=== PATIENT | female | born 1950 | race Caucasian/White ===

== ENCOUNTER → 2016-06-07 | Outpatient (CLI) | payer MEDICARE, MEDICAID ==
--- NOTE | 2016-06-07 10:22 | RAD ---
EXAM DESCRIPTION: Right knee three views CLINICAL HISTORY: 66 y/o ,F, chronic knee pain COMPARISON: None. IMPRESSION: Advanced patellofemoral osteoarthrosis with moderate lateral patellar tracking/ subluxation. Severe medial tibiofemoral compartment joint space narrowing nearly lime-ad-onse with weight-bearing. Lower grade osteoarthrosis of the lateral tibiofemoral compartment. Large osteophytes and possible bodies in the intercondylar region. Several radiopaque densities likely medication overlying the patient in the distal thigh. Bones are osteopenic/ osteoporotic. No acute fracture. No large effusion or hemarthrosis. Several ossified bodies posteriorly on the lateral film. Electronically signed by: Med Alston MD 06/07/2016 10:20
--- NOTE | 2016-06-07 11:12 | RAD ---
EXAM DESCRIPTION: Pelvis one-view CLINICAL HISTORY: 66 y/o ,F, HIP PAIN COMPARISON: None. IMPRESSION: Surgical clips are noted in the pelvis lower quadrants of the abdomen and over the lower lumbar region. Bones are osteopenic. No evidence of acute pelvic fracture or dislocation. No destructive process. Degenerative changes lower lumbar spine. Electronically signed by: Med Alston MD 06/07/2016 11:10
== END ==
LOC: RAD 09:02
PROVIDERS: ATTEND Orthopaedic Surgery
DX: M17.11 Unilateral primary osteoarthritis, right knee (principal); M85.88 Other specified disorders of bone density and structure, other site; M25.551 Pain in right hip

== ENCOUNTER → 2016-08-02 | Outpatient (CLI) | payer MEDICARE, MEDICAID | END | disposition home or self-care (01) | LOC: RESP 09:51 | PROVIDERS: ATTEND Orthopaedic Surgery | DX: Z01.818 Encounter for other preprocedural examination (principal) ==

== ENCOUNTER → 2017-02-16 | Outpatient (CLI) | payer MEDICARE, MEDICAID | END | disposition home or self-care (01) | LOC: GMAL 11:04 | PROVIDERS: ATTEND Family Medicine | DX: R30.0 Dysuria (principal) ==

== ENCOUNTER 2017-03-01 06:00 | Inpatient (IN) | payer MEDICARE, MEDICAID ==
--- NOTE | 2017-02-27 10:03 | HP ---
CHIEF COMPLAINT: Knee pain. HISTORY OF PRESENT ILLNESS: Ms. Batista is a 66-year-old female with a history of severe knee pain. It is getting progressively worse and is affecting her daily activities. She has had conservative measures, but has also had contralateral knee replacement. Because of her ongoing symptoms, she has requested total knee arthroplasty. After discussing the risks, benefits and alternatives to that, the patient has given informed consent. PAST SURGICAL HISTORY: 1. Rotator cuff repair. 2. Cholecystectomy. 3. Appendectomy. 4. Hysterectomy. MEDICATIONS: 1. Tylenol with codeine. 2. Azelastine. 3. Multiple different vitamins. 4. Duloxetine. 5. Fluticasone. 6. Lisinopril. 7. Loratadine. 8. Montelukast. 9. Trazodone. 10. Claritin. ALLERGIES: GABAPENTIN, REGLAN, VICODIN, FLONASE. CODE STATUS: DNR. IMMUNIZATIONS: Up to date. SOCIAL HISTORY: The patient does not drink, smoke or use any illicit drugs. FAMILY HISTORY: None pertinent to today's complaint. REVIEW OF SYSTEMS: Negative except as indicated in the History of Present Illness. PHYSICAL EXAMINATION: VITAL SIGNS: Blood pressure 95/50. Pulse 81. Height 5'9". Weight 238. MENTAL STATUS: The patient is awake, alert, and is able to give a good history and participate in the physical. The patient is oriented to person, place and time. SKIN: Normal tone and turgor. HEENT: Normocephalic, atraumatic. Pupils equal, round and reactive. Mucosal membranes are moist. NECK: Normal range of motion. No thyromegaly, no lymphadenopathy. CHEST: Normal respiratory excursion. CARDIAC: Regular rate and rhythm. No murmurs, rubs or gallops. MUSCULOSKELETAL: The bilateral upper extremities show full active range of motion without pain. She has intact sensation. They are warm and well perfused. Strength is 5/5. The left lower extremity shows full range of motion of the hip. She has a well-healed wound on the anterior aspect of the knee. She has full extension and flexion to about 110 degrees. The right lower extremity shows full painless range of motion in the hip. She is very tender along the medial aspect of the knee. She has lateral joint-line tenderness and pain with patellar mobilization. She has pain throughout her range of motion. IMAGING: X-rays show advanced arthritis. ASSESSMENT: 1. Arthritis. PLAN: The plan at this point is for total knee arthroplasty. We have discussed the risks, benefits, and alternatives to that and the patient has given informed consent. [facility][id number] [facility]
[~2017-03-01 06:00] MED LIST: LACTATED RINGERS 1,000 ML ONE; SODIUM CHL 0.9% 100ML MINI-BAG 100 ML IVPB ONE; SODIUM CHLORIDE 0.9% 100ML 100 ML IVPB ONE; SODIUM CHLORIDE 0.9% 250ML 250 ML ONE; TRANEXAMIC ACID 1,000 MG/10 ML VIAL ONE; VANCOMYCIN HCL INJ 1,000 MG VIAL IVPB ONE; ceFAZolin SODIUM 1 GM VIAL ONE
[2017-03-01] MEDS ORDERED: ceFAZolin SODIUM 1 GM VIAL ONE (06:06)
[2017-03-01] MEDS ORDERED: MORPHINE SULFATE *EPIDURAL* 0.5 MG/ML VIAL ONE (06:32)
[2017-03-01] MEDS ORDERED: MIDAZOLAM INJ 2 MG/2 ML VIAL ONE (06:32)
[2017-03-01] MEDS ORDERED: fentaNYL CITRATE INJ 50 MCG/ML AMP ONE (06:33)
[2017-03-01] MEDS ORDERED: ACETAMINOPHEN IV 1000MG 100 ML ONE (06:33)
[2017-03-01] MEDS ORDERED: BENZOCAINE-MENTH LOZ (CEPACOL) 1 EA LOZ MT PRN (06:50)
[2017-03-01] MEDS ORDERED: MAGNESIUM HYDROXIDE 30 ML UD PO PRN (06:50)
[2017-03-01] MEDS ORDERED: PROMETHAZINE HCL INJ 25 MG in SODIUM CHLORIDE 0.9% 50ML 50 ML IVPB PRN (06:50)
[2017-03-01] MEDS ORDERED: MORPHINE SULFATE INJ 10 MG/ML VIAL IV PRN (06:50)
[2017-03-01] MEDS ORDERED: PROMETHAZINE HCL INJ 12.5 MG in SODIUM CHLORIDE 0.9% 50ML 50 ML IVPB PRN (06:50)
[2017-03-01] MEDS ORDERED: CYCLOBENZAPRINE HCL 10 MG TAB PO PRN (06:50)
[2017-03-01] MEDS ORDERED: ACETAMINOPHEN 325 MG TAB PO PRN (06:50)
[2017-03-01] MEDS ORDERED: ONDANSETRON INJ 4 MG/2 ML VIAL IV PRN (06:50)
[2017-03-01] MEDS ORDERED: NALOXONE HCL INJ 0.4 MG/ML VIAL IV PRN (06:50)
[2017-03-01] MEDS ORDERED: ALUMINUM & MAGNESIUM HYDROXIDE 30 ML UD PO PRN (06:50)
[2017-03-01] MEDS ORDERED: TRANEXAMIC ACID INJ 1,000 MG in SODIUM CHLORIDE 0.9% 100ML 100 ML IVPB ONE (06:50)
[2017-03-01] MEDS ORDERED: HYDROcodone 5MG/APAP 325MG 1 EA TAB PO PRN ×2 (06:50→18:16)
[2017-03-01] MEDS ORDERED: ACETAMINOPHEN 500 MG TAB PO PRN (06:50)
[2017-03-01] MEDS ORDERED: BISACODYL SUPPOSITORY 10 MG PR PRN (06:50)
[2017-03-01] MEDS ORDERED: DEX 5% W/NACL 0.45% 1000ML 1,000 ML IVS PRN (06:50)
[2017-03-01] MEDS ORDERED: MORPHINE SULFATE INJ 10 MG/ML VIAL IM PRN (06:50)
[2017-03-01] MEDS ORDERED: TEMAZEPAM 15 MG CAP PO PRN (06:50)
[2017-03-01] MEDS ORDERED: MORPHINE PCA 1 MG/ML 100ML 1 BAG in PREMIX BAG 1 BAG IVPB SCH (07:00)
[2017-03-01] MEDS ORDERED: ROCURONIUM BROMIDE 10 MG/ML VIAL ONE (07:06)
[2017-03-01] MEDS ORDERED: KETAMINE HCL 100 MG/ML VIAL ONE (07:47)
[2017-03-01] MEDS: ceFAZolin SODIUM 1 GM VIAL ONE ×2 (07:55→09:12)
[2017-03-01] MEDS: BUPIVACAINE 0.25% W/EPI 50 ML VIAL INJ ONE ×2 (07:55→09:24)
[2017-03-01] MEDS: VANCOMYCIN HCL INJ 1,000 MG VIAL IVPB ONE ×2 (07:55→09:12)
[2017-03-01] MEDS ORDERED: ELECTROLYTE-A 1,000 ML IVS ONE (08:40)
[2017-03-01] MEDS ORDERED: raNITIdine HCL INJ 25 MG/ML VIAL IV ONE (10:00)
[2017-03-01] MEDS ORDERED: DEXAMETHASONE INJ 10 MG/ML VIAL IV ONE (10:00)
[2017-03-01] MEDS ORDERED: PROPOFOL 200 MG/20 ML VIAL IV ONE (10:00)
[2017-03-01] MEDS ORDERED: LIDOCAINE 1% 10 ML VIAL INJ ONE (10:00)
[2017-03-01] MEDS ORDERED: MORPHINE PCA 1 MG/ML 100 ML BAG IVPB ONE ×2 (10:01→10:10)
[2017-03-01] MEDS: MAGNESIUM OXIDE 400 MG TAB PO SCH (11:15)
[2017-03-01] MEDS: IV SET AND CAP CHANGE INJ INJ SCH (11:15)
[2017-03-01] MEDS: CELECOXIB 100 MG CAP PO SCH ×2 (11:15→16:42)
[2017-03-01] MEDS ORDERED: diphenhydrAMINE HCL 50 MG/ML VIAL IM PRN (11:56)
[2017-03-01] MEDS: diphenhydrAMINE HCL 50 MG/ML VIAL IV PRN ×3 (12:07→16:41)
[2017-03-01] MEDS ORDERED: ALBUTEROL SULFATE 2.5 MG/3 ML VIAL NEB PRN (14:25)
--- NOTE | 2017-03-01 14:31 | RAD ---
EXAM DESCRIPTION: Knee,Right 2 or More Views CLINICAL HISTORY: TKA COMPARISON: Radiographs right knee 06/07/2016. TECHNIQUE: AP and cross-table lateral images right knee. IMPRESSION: Right total knee arthroplasty. Components in customary position with near-anatomic alignment. Bone abutting the components is unremarkable except for generalized bone density loss. Typical postoperative soft tissue changes. Small soft tissue densities posterior to the femur and superior to the fibular head. Electronically signed by: Florentin Sims MD 03/01/2017 2:29 PM CDT
[2017-03-01] MEDS ORDERED: CEFAZOLIN SODIUM 2 GRAMS IV 50 ML IVPB ONE ×2 (16:35→20:10)
[2017-03-01] MEDS: CEFAZOLIN SODIUM 2 GRAMS IV 2 GM in PREMIX BAG 1 BAG IVPB SCH (16:41)
--- NOTE | 2017-03-01 17:43 | CONS ---
DATE OF CONSULTATION: 03/01/17 SUPERVISING PHYSICIAN: Keegan Lawrence M.D. CHIEF COMPLAINT: Right knee pain. HISTORY OF PRESENT ILLNESS: This is a 66 year-old female patient that has a history of severe right knee pain. It has progressively worsened and has affected her daily activities. She has tried conservative measures and because of her ongoing symptoms she has requested a right total knee arthroplasty per Dr. Juma Saunders, orthopedic surgeon. I am seeing her postoperatively after her right total knee arthroplasty. PAST MEDICAL HISTORY: 1. Hypertension. 2. Gastroesophageal reflux disease. 3. Hyperlipidemia. 4. Left ventricular hypertrophy. 5. Osteoarthritis. 6. History of nephrolithiasis. 7. Obesity. 8. Seasonal allergies. PAST SURGICAL HISTORY: 1. 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 2. Gastric bypass surgery. 3. Tonsillectomy. 4. Dilatation and curettage for a fibroid mass. 5. Panniculectomy. 6. Laminectomy and discectomy of the lower back. 7. Carpal tunnel surgery. 8. Left total knee arthroplasty. OUTPATIENT MEDICATIONS: Per the EMR and awaiting verification. ALLERGIES: AMBIEN, MACROBID, PENICILLIN, SOMA, DEMEROL. FAMILY HISTORY: SOCIAL HISTORY: She is single. She is unmarried. She has no children. She denies tobacco, ETOH or illicit drug use. REVIEW OF SYSTEMS: Negative except as per History of Present Illness. PHYSICAL EXAMINATION: VITAL SIGNS: She is afebrile, heart rate 78, blood pressure 112/81, respiratory rate 18, O2 sat is 98% on 2 liters. GENERAL: This is a 66 year-old female patient lying in her hospital bed. She is in no acute distress. HEENT: Normocephalic and atraumatic. Pupils are equal and reactive. Oropharynx is clear. NECK: Supple without mass. RESPIRATORY: Clear to auscultation bilaterally. CHEST: There is equal rise and fall of the chest with inspiration and expiration. HEART: Regular rate and rhythm. ABDOMEN: Soft, nondistended, non-tender. Bowel sounds are positive. EXTREMITIES: Right knee has an Iceman in place. Bilateral pedal pulses are palpable at +2. There is very minimal edema to the right lower leg. NEUROLOGIC: She is sleepy. She awakens easily. She is oriented to person and place. LABORATORY: There are no labs to report at this time. RADIOLOGY: X-ray from her surgical procedure is per the EMR. ASSESSMENT: 1. Osteoarthritis of the bilateral knees, specifically the right knee status post right total knee arthroplasty performed by Dr. Juma Saunders. Postoperative day #0. 2. Gastroesophageal reflux disease. 3. Hypertension. 4. Seasonal allergies. 5. Hyperlipidemia. 6. History of left ventricular hypertrophy. PLAN: We will continue present supportive care. She will begin her physical therapy tomorrow for strengthening and conditioning per Physical Therapy. Orthopedic issues will be per Dr. Saunders. I have restarted her home medications. I have encouraged good pulmonary hygiene. We will continue to monitor her closely and followup as needed. Dr. Lawrence is the collaborating physician available for consultation. #[id number] [facility]
[2017-03-01] MEDS ORDERED: VANCOMYCIN HCL INJ 1,000 MG VIAL IVPB ONE ×2 (18:11→20:10)
[2017-03-01] MEDS ORDERED: SODIUM CHLORIDE 0.9% 250ML 250 ML ONE ×2 (18:11→20:09)
[2017-03-01] MEDS: VANCOMYCIN HCL INJ 1,000 MG in SODIUM CHLORIDE 0.9% 250ML 250 ML IVPB SCH (18:23)
[2017-03-01] MEDS: HYDROcodone 10MG/APAP 325MG 1 EA TAB PO PRN (18:24)
[2017-03-01] MEDS ORDERED: ENOXAPARIN SODIUM 30 MG/0.3 ML SYG SUBCU ONE (20:10)
[2017-03-01] MEDS: CYCLOBENZAPRINE HCL 10 MG TAB PO PRN (20:21)
[2017-03-01] MEDS: LEVALBUTEROL NEBS 1.25 MG/3 ML VIAL NEB SCH (20:29)
[2017-03-01] MEDS: diphenhydrAMINE HCL 25 MG CAP PO PRN (20:51)
[2017-03-01] MEDS: AZELASTINE BNAS SCH (20:52)
[2017-03-01] MEDS: traZODone HCL 100 MG TAB PO SCH (20:52)
[2017-03-01] MEDS: MONTELUKAST 10 MG TAB PO SCH (20:53)
[2017-03-01] MEDS: DOCUSATE CALCIUM 240 MG CAP PO SCH (20:53)
[2017-03-01] MEDS ORDERED: BUDESONIDE 180 MCG IN SCH (21:00)
[2017-03-01] MEDS: ENOXAPARIN SODIUM 30 MG/0.3 ML SYG SUBCU SCH (22:48)
[2017-03-02] MEDS: HYDROcodone 10MG/APAP 325MG 1 EA TAB PO PRN ×3 (01:54→15:17)
[2017-03-02] MEDS: traMADol HCL 50 MG TAB PO PRN (03:00)
[2017-03-02] MEDS: diphenhydrAMINE HCL 25 MG CAP PO PRN (03:09)
[2017-03-02] MEDS: HYDROmorphone HCL INJ 2 MG/ML VIAL IV PRN ×2 (05:49→11:02)
[2017-03-02] MEDS: hydrOXYzine HCl 25 MG TAB PO PRN ×3 (05:49→21:01)
[2017-03-02] MEDS: VANCOMYCIN HCL INJ 1,000 MG in SODIUM CHLORIDE 0.9% 250ML 250 ML IVPB SCH (05:50)
[2017-03-02] MEDS: CYCLOBENZAPRINE HCL 10 MG TAB PO PRN ×2 (06:25→17:54)
--- NOTE | 2017-03-02 07:54 | PN ---
DATE: 03/01/17 SUBJECTIVE: Ms. Batista is subjectively doing well right now and she is resting. OBJECTIVE: Afebrile. Vital signs stable. Dressing is clean, dry and intact. ASSESSMENT: Status post total knee arthroplasty. PLAN: The plan at this point is for her to begin weight-bearing as tolerated on postoperative day 1. #[id number] [facility]
[2017-03-02] MEDS ORDERED: CEFAZOLIN SODIUM 2 GRAMS IV 50 ML IVPB ONE (07:56)
--- NOTE | 2017-03-02 08:01 | PN ---
DATE: 03/02/17 SUBJECTIVE: Ms. Batista is doing very well. She walked a couple of times yesterday. OBJECTIVE: Afebrile. Vital signs stable. Wound is clean. There are no signs or symptoms of infection. ASSESSMENT: Status post total knee arthroplasty. PLAN: She will continue with her current weight-bearing status. [facility][id number] [facility]
[2017-03-02] MEDS: CELECOXIB 100 MG CAP PO SCH ×2 (08:14→16:48)
[2017-03-02] MEDS: CEFAZOLIN SODIUM 2 GRAMS IV 2 GM in PREMIX BAG 1 BAG IVPB SCH ×2 (08:14)
--- NOTE | 2017-03-02 08:25 | OP ---
DATE OF PROCEDURE: 03/01/17 PREOPERATIVE DIAGNOSIS: 1. Osteoarthritis of the knee. POSTOPERATIVE DIAGNOSIS: 1. Osteoarthritis of the knee. PROCEDURE: 1. Total knee arthroplasty. SURGEON: Juma Saunders MD. [place]: Florentin Cunha CST, SA-C. ANESTHESIA: General. COMPLICATIONS: None. FINDINGS: Severe osteoarthritis of the knee. INDICATION: Ms. Batista has a history of severe knee pain that has been getting progressively worse over the years. She has failed conservative measures and as such as requested operative intervention. After discussing the risks, benefits and alternatives to operative intervention, the patient has given informed consent for total knee arthroplasty. PROCEDURE: The patient was brought to the Operating Room and placed in supine position. General anesthesia was induced and the patient's leg was sterilely prepped and draped. Following prepping and draping, an anterior incision with medial parapatellar approach was used. After exposure, a capsulotomy was performed and the joint was exposed. The knee was hyperflexed and synovectomy and meniscectomy were performed. Using an intramedullary linda, the distal femoral cut was made. Following that, the anterior, posterior, and chamfer cuts were made. The ACL was transected and the tibia was subluxed. Following that, proximal tibial cut was made using an an intramedullary guide. Trial components were placed and the knee was reduced and taken through a range of motion. At that point, it was stable in varus/valgus and anterior/posterior stress testing and patella tracked well. The trial components were removed. The bony surfaces were thoroughly irrigated and dried. The final components were cemented into place. The excess cement was removed and the remaining cement was allowed to cure. The knee was thoroughly irrigated. On further ligamentous testing, she did have some laxity with firm endpoint in valgus stress. Because she did have a firm endpoint, I elected to continue with the procedure irrigate the wound and close the arthrotomy with PDS followed by running interrupted subcuticular stitches. Sterile dressing was placed. The patient was awoken from anesthesia and taken to Recovery. POSTOPERATIVE INSTRUCTIONS: The patient will be weight-bearing as tolerated on postoperative day 1. We will consider using a brace although that may only be the case if she has some feelings of instability secondary to the laxity noted after cementation of the components. We will begin CPM usage on postoperative day zero. #[id number] [facility]
[2017-03-02] MEDS: DULoxetine HCL 30 MG CAP PO SCH (08:51)
[2017-03-02] MEDS: GABAPENTIN 300 MG CAP PO SCH (08:51)
[2017-03-02] MEDS: LISINOPRIL 5 MG TAB PO SCH (08:51)
[2017-03-02] MEDS: MAGNESIUM OXIDE 400 MG TAB PO SCH (08:51)
[2017-03-02] MEDS: AZELASTINE BNAS SCH ×2 (08:52→21:00)
[2017-03-02] MEDS ORDERED: FLUTICASONE PROP 0.05% NASAL 16 GM BTTL BNAS SCH (09:00)
[2017-03-02] MEDS: LEVALBUTEROL NEBS 1.25 MG/3 ML VIAL NEB SCH ×3 (10:00→20:10)
[2017-03-02] MEDS: ENOXAPARIN SODIUM 30 MG/0.3 ML SYG SUBCU SCH ×2 (10:56→22:58)
--- NOTE | 2017-03-02 15:07 | PN ---
SUPERVISING PHYSICIAN: Keegan Lawrence MD DATE: 03/02/17 SUBJECTIVE: The patient is sitting in the bedside chair eating lunch. She says her pain is fairly well controlled. She has had some episodes of pruritus. She was given some Atarax as well as she has had some confusional episodes from postoperative pain management. She does remain afebrile. OBJECTIVE: VITAL SIGNS: T-max 98.9. Pulse 87. Blood pressure 128/63. Respirations 16. Saturation 94% on room air. I&Os show negative balance of 440 , with 2610 in, 3050 out. Weight 112.4 kg. CHEST: Lungs clear to auscultation, diminished slightly towards the bases. ABDOMEN: Soft, nontender. Positive bowel sounds. EXTREMITIES: Bulky dressing remains in place overlying the right knee. Pulses are strong with brisk capillary brisk. NEUROLOGIC: Alert and oriented to herself, somewhat confused to place at times, but easily oriented. She moves all extremities ad jessica. LABORATORY: Postoperative hemoglobin 9.5, hematocrit 27.8. ASSESSMENT: 1. Osteoarthritis of the bilateral knees, specifically affecting the right knee with the patient status post right total knee arthroplasty, postoperative day # 1, performed by Dr. Juma Saunders. 2. Gastroesophageal reflux disease. 3. Hypertension. 4. Seasonal allergies. 5. Hyperlipidemia. 6. History of left ventricular hypertrophy. PLAN: We will continue to monitor the patient closely, adjust her pain medicines and assist with administration of medicine in regard to the pruritus. We will anticipate discharge at the discretion of Dr. Saunders in orthopedic services along with physical therapy. Until then, we will continue to monitor the patient closely and treat appropriately. #[id number] [facility]
[2017-03-02] MEDS ORDERED: LORATADINE 10 MG TAB PO ONE (19:59)
[2017-03-02] MEDS: SODIUM CHLORIDE 0.9% (FLUSH) 10 ML SYG IV PRN (20:20)
[2017-03-02] MEDS: LORATADINE 10 MG TAB PO SCH (21:00)
[2017-03-02] MEDS: MONTELUKAST 10 MG TAB PO SCH (21:00)
[2017-03-02] MEDS: traZODone HCL 100 MG TAB PO SCH (21:00)
[2017-03-02] MEDS: DOCUSATE CALCIUM 240 MG CAP PO SCH (21:00)
[2017-03-03] MEDS: HYDROmorphone HCL INJ 2 MG/ML VIAL IV PRN (01:00)
[2017-03-03] MEDS: SODIUM CHLORIDE 0.9% (FLUSH) 10 ML SYG IV PRN ×2 (01:00→02:39)
[2017-03-03] MEDS: HYDROcodone 10MG/APAP 325MG 1 EA TAB PO PRN ×3 (04:45→18:21)
[2017-03-03] MEDS: LEVALBUTEROL NEBS 1.25 MG/3 ML VIAL NEB SCH ×3 (08:05→20:41)
[2017-03-03] MEDS: SODIUM CHLORIDE 0.9% (FLUSH) 10 ML SYG IV SCH ×3 (08:12→20:34)
[2017-03-03] MEDS: CYCLOBENZAPRINE HCL 10 MG TAB PO PRN ×2 (08:12→16:27)
[2017-03-03] MEDS: GABAPENTIN 300 MG CAP PO SCH (08:12)
[2017-03-03] MEDS: CELECOXIB 100 MG CAP PO SCH ×2 (08:12→16:27)
[2017-03-03] MEDS: traMADol HCL 50 MG TAB PO PRN (08:12)
[2017-03-03] MEDS: DULoxetine HCL 30 MG CAP PO SCH (08:12)
[2017-03-03] MEDS: LISINOPRIL 5 MG TAB PO SCH (08:12)
[2017-03-03] MEDS: MAGNESIUM OXIDE 400 MG TAB PO SCH (08:12)
[2017-03-03] MEDS: AZELASTINE BNAS SCH ×2 (08:12→20:30)
[2017-03-03] MEDS ORDERED: ALPRAZolam 0.25 MG TAB ONE (09:12)
[2017-03-03] MEDS: ALPRAZolam 0.25 MG TAB PO PRN ×2 (09:18→18:21)
[2017-03-03] MEDS: ENOXAPARIN SODIUM 30 MG/0.3 ML SYG SUBCU SCH ×2 (11:16→23:04)
--- NOTE | 2017-03-03 13:44 | PN ---
SUPERVISING PHYSICIAN: Keegan Lawrence MD DATE: 03/03/17 SUBJECTIVE: The patient is much more alert today although she is still having some itching issues. She has fairly good control of her pain and has no signs of infection. She remains afebrile. She has been working with physical therapy. OBJECTIVE: VITAL SIGNS: T-max 98.8. Pulse 83. Blood pressure 160/82. Respirations 18. Saturation 98% on room air. I&Os show negative balance of 385 with 2015 in, 2400 out. Weight 112.4 kg. CHEST: Lungs clear to auscultation bilaterally. HEART: Regular rate and rhythm. ABDOMEN: Soft, nontender. Positive bowel sounds. EXTREMITIES: Bulky dressing remains in place over the right knee. Distal pulses are strong with brisk capillary refill. NEUROLOGIC: Alert and oriented times three. ASSESSMENT: 1. Osteoarthritis of the bilateral knees, specifically affecting the right knee with the patient status post right total knee arthroplasty, postoperative day # 2, performed by Dr. Juma Saunders. 2. Gastroesophageal reflux disease. 3. Hypertension. 4. Seasonal allergies. 5. Hyperlipidemia. 6. History of ventricular hypertrophy. PLAN: We will continue to follow the patient as she progresses through physical therapy efforts. She has been somewhat anxious. We will try some Xanax p.r.n. 0.25 mg. We will monitor close and ensure the patient is able to continue with her physical therapy with no sedation. We will continue to follow the patient and encourage deep breathing exercises and anticipate discharge once the patient is clinically improved and met her goals with physical therapy. Until then, we will continue to monitor the patient closely and treat appropriately. #[id number] [facility]
--- NOTE | 2017-03-03 15:23 | PCM.CORE ---
Physician DVT/VTE - Nurse DVT Assessment & Total Each Risk Factor Represents 5 Points: Elective Arthtroplasty Each Risk Factor Represents 2 Points: Major Surgery >45 minutes, Confined to bed >72 hours Each Risk Factor is 1 Point: Obesity (BMI >25) DVT Assessment Score: 10 - 5 or more Very High Risk Treatments: Early Ambulation *, Sequential Compression Device Pharmacological: Enoxaparin 30mg SQ BID
[2017-03-03] MEDS ORDERED: CEFEPIME 2 GM VIAL IVPB ONE (18:07)
[2017-03-03] MEDS ORDERED: SODIUM CHLORIDE 0.9% 1000ML 1,000 ML ONE (18:07)
[2017-03-03] MEDS ORDERED: SODIUM CHLORIDE 0.9% 100ML 100 ML IVPB ONE (18:08)
[2017-03-03] MEDS: DOCUSATE CALCIUM 240 MG CAP PO SCH (20:29)
[2017-03-03] MEDS: MONTELUKAST 10 MG TAB PO SCH (20:29)
[2017-03-03] MEDS: LORATADINE 10 MG TAB PO SCH (20:29)
[2017-03-03] MEDS: traZODone HCL 100 MG TAB PO SCH (20:29)
[2017-03-03] MEDS: FLUTICASONE PROP 0.05% NASAL 16 GM BTTL BNAS SCH (20:30)
[2017-03-04] MEDS: HYDROcodone 10MG/APAP 325MG 1 EA TAB PO PRN ×3 (02:24→23:57)
[2017-03-04] MEDS: ALPRAZolam 0.25 MG TAB PO PRN ×2 (02:24→10:02)
[2017-03-04] MEDS: CYCLOBENZAPRINE HCL 10 MG TAB PO PRN (05:57)
[2017-03-04] MEDS: traMADol HCL 50 MG TAB PO PRN (05:57)
[2017-03-04] MEDS: LEVALBUTEROL NEBS 1.25 MG/3 ML VIAL NEB SCH ×3 (08:09→19:22)
[2017-03-04] MEDS: DULoxetine HCL 30 MG CAP PO SCH (08:09)
[2017-03-04] MEDS: IV SET AND CAP CHANGE INJ INJ SCH (08:10)
[2017-03-04] MEDS: CELECOXIB 100 MG CAP PO SCH ×2 (08:10→16:57)
[2017-03-04] MEDS: AZELASTINE BNAS SCH ×2 (08:10→21:15)
[2017-03-04] MEDS: GABAPENTIN 300 MG CAP PO SCH (08:11)
[2017-03-04] MEDS: LISINOPRIL 5 MG TAB PO SCH (08:16)
[2017-03-04] MEDS: SODIUM CHLORIDE 0.9% (FLUSH) 10 ML SYG IV SCH ×2 (08:16→21:33)
[2017-03-04] MEDS: MAGNESIUM OXIDE 400 MG TAB PO SCH (08:16)
[2017-03-04] MEDS: ACETAMINOPHEN W/COD #3 TAB 1 EA TAB PO PRN ×3 (12:44→21:17)
[2017-03-04] MEDS: ENOXAPARIN SODIUM 30 MG/0.3 ML SYG SUBCU SCH ×2 (12:44→23:26)
--- NOTE | 2017-03-04 12:45 | PN ---
DATE: 03/03/17 SUBJECTIVE: Ms. Batista subjectively is doing well. She is ambulating independently with her walker. OBJECTIVE: She is afebrile. Vital signs are stable. Wound is clean. There are no signs or symptoms of infection. ASSESSMENT: 1. Status post total knee arthroplasty. PLAN: The plan is to continue on with weightbearing as tolerated and CPM. #[id number] [facility]
--- NOTE | 2017-03-04 12:54 | PN ---
DATE: 03/04/17 SUBJECTIVE: Ms. Batista is doing well today. She is actually up and walking. OBJECTIVE: She is afebrile. Vital signs are stable. Wound is clean. There are no signs or symptoms of infection. ASSESSMENT: 1. Status post total knee arthroplasty. PLAN: The plan at this point is to continue on with her status and continue on with physical therapy. Will discharge when she meets her goals. #[id number] [facility]
--- NOTE | 2017-03-04 14:12 | PN ---
DATE: 03/04/17 SUPERVISING PHYSICIAN: Keegan Lawrence M.D. SUBJECTIVE: The patient is again sitting in the bedside chair. She says her pain is not that greatly controlled. She is requesting Tylenol #4 which she takes at home. She has had no nausea. She is much more alert today. Discussed with her the possibility of going to [facility] on Monday depending on how she does with physical therapy over the weekend. OBJECTIVE: VITAL SIGNS: Afebrile, T max 97.5, pulse 67, blood pressure 101/67, respirations 20, satting 98% on room air. I's and O's show a negative balance of 4680 with 720 in, 5400 out. CHEST: Clear to auscultation bilaterally. HEART : Regular rate and rhythm. ABDOMEN: Soft, non-tender. Positive bowel sounds. EXTREMITIES: Surgical dressing is in place over the right knee which shows to be clean and dry. No signs of infection. Pulses distally are strong. Capillary refill is brisk. NEUROLOGIC: She is alert and oriented times three. No laboratory or radiographic studies for review. ASSESSMENT: 1. Osteoarthritis of bilateral knees, specifically affecting the right knee with the patient status post right total knee arthroplasty, postoperative day 3 having been performed by Dr. Juma Saunders. 2. Gastroesophageal reflux disease. 3. Hypertension. 4. Seasonal allergies. 5. Hyperlipidemia. 6. History of ventricular hypertrophy. PLAN: Will continue to follow the patient through her physical therapy efforts. There is a possibility the patient may need to go to [facility]. Will reevaluate this on Monday based off how far she has made it through her physical therapy goals. Until discharge, will continue to monitor and treat appropriately. #[id number] [facility]
[2017-03-04] MEDS ORDERED: BISACODYL SUPPOSITORY 10 MG PR ONE (21:00)
[2017-03-04] MEDS ORDERED: MAGNESIUM HYDROXIDE 30 ML UD PO ONE (21:00)
[2017-03-04] MEDS: LORATADINE 10 MG TAB PO SCH (21:15)
[2017-03-04] MEDS: DOCUSATE CALCIUM 240 MG CAP PO SCH (21:15)
[2017-03-04] MEDS: traZODone HCL 100 MG TAB PO SCH (21:15)
[2017-03-04] MEDS: FLUTICASONE PROP 0.05% NASAL 16 GM BTTL BNAS SCH (21:15)
[2017-03-04] MEDS: MONTELUKAST 10 MG TAB PO SCH (21:15)
[2017-03-04] MEDS: TYLENOL PO PRN (21:17)
[2017-03-04] MEDS: CODEINE PO PRN (21:17)
[2017-03-05] MEDS: CODEINE PO PRN ×4 (02:08→21:02)
[2017-03-05] MEDS: ACETAMINOPHEN W/COD #3 TAB 1 EA TAB PO PRN (02:08)
[2017-03-05] MEDS: TYLENOL PO PRN ×4 (02:08→21:02)
[2017-03-05] MEDS: CYCLOBENZAPRINE HCL 10 MG TAB PO PRN ×3 (06:07→18:21)
[2017-03-05] MEDS: CELECOXIB 100 MG CAP PO SCH ×2 (07:33→17:03)
[2017-03-05] MEDS: DULoxetine HCL 30 MG CAP PO SCH (08:22)
[2017-03-05] MEDS: MAGNESIUM OXIDE 400 MG TAB PO SCH (08:23)
[2017-03-05] MEDS: AZELASTINE BNAS SCH ×2 (08:23→20:47)
[2017-03-05] MEDS: LISINOPRIL 5 MG TAB PO SCH (08:23)
[2017-03-05] MEDS: GABAPENTIN 300 MG CAP PO SCH (08:23)
[2017-03-05] MEDS: LEVALBUTEROL NEBS 1.25 MG/3 ML VIAL NEB SCH ×3 (09:02→19:38)
[2017-03-05] MEDS: ENOXAPARIN SODIUM 30 MG/0.3 ML SYG SUBCU SCH ×2 (10:27→22:30)
[2017-03-05] MEDS: ALPRAZolam 0.25 MG TAB PO PRN ×2 (10:27→18:21)
[2017-03-05] MEDS: MONTELUKAST 10 MG TAB PO SCH (20:46)
[2017-03-05] MEDS: FLUTICASONE PROP 0.05% NASAL 16 GM BTTL BNAS SCH (20:47)
[2017-03-05] MEDS: DOCUSATE CALCIUM 240 MG CAP PO SCH (20:47)
[2017-03-05] MEDS: LORATADINE 10 MG TAB PO SCH (20:47)
[2017-03-05] MEDS: traZODone HCL 100 MG TAB PO SCH (20:48)
[2017-03-06] MEDS: HYDROcodone 10MG/APAP 325MG 1 EA TAB PO PRN ×3 (00:02→12:19)
[2017-03-06] MEDS: TYLENOL PO PRN ×2 (03:13→10:17)
[2017-03-06] MEDS: CODEINE PO PRN ×2 (03:13→10:17)
[2017-03-06 04:50] VITALS: BP 121/73; TEMP 98.3
[2017-03-06] MEDS: CYCLOBENZAPRINE HCL 10 MG TAB PO PRN (06:25)
--- NOTE | 2017-03-06 07:37 | PN ---
DATE: 03/06/17 SUBJECTIVE: Ms. Batista has been up walking already today. She is doing well with regards to pain control. OBJECTIVE: Afebrile. Vital signs stable. Wound is clean. There are no signs or symptoms of infection. ASSESSMENT: Status post total knee arthroplasty. PLAN: She will continue with weight-bearing as tolerated. [facility][id number] [facility]
[2017-03-06] MEDS: CELECOXIB 100 MG CAP PO SCH (07:56)
[2017-03-06] MEDS: LEVALBUTEROL NEBS 1.25 MG/3 ML VIAL NEB SCH ×2 (08:01→15:15)
[2017-03-06 08:05] VITALS: O2SAT 98
[2017-03-06] MEDS: DULoxetine HCL 30 MG CAP PO SCH (08:26)
[2017-03-06] MEDS: AZELASTINE BNAS SCH (08:26)
[2017-03-06] MEDS: GABAPENTIN 300 MG CAP PO SCH (08:27)
[2017-03-06] MEDS: LISINOPRIL 5 MG TAB PO SCH (08:27)
[2017-03-06] MEDS: MAGNESIUM OXIDE 400 MG TAB PO SCH (08:27)
--- NOTE | 2017-03-06 10:05 | PN ---
DATE: 03/05/17 SUPERVISING PHYSICIAN: Keegan Lawrence M.D. SUBJECTIVE: The patient is feeling better today. Pain is well controlled with Tylenol #4. She has actually been up to the shower. She has had no complications. No signs of infection.. OBJECTIVE: VITAL SIGNS: She remains afebrile, T max 98, pulse 89, blood pressure 140/63, respirations 16, saturation 97% on room air. I's and O's show a negative balance of 160 with 2440 in, 2600 out. She has had one bowel movement. CHEST: Lungs clear to auscultation. HEART: Regular rate and rhythm. ABDOMEN: Obese, soft, non-tender. Positive bowel sounds. EXTREMITIES: No cyanosis, clubbing, or edema.There is a dressing overlying the right knee which is clean and dry. No signs of infection noted, no edema. Pulses distally are strong. Capillary refill is brisk. NEUROLOGIC: She is alert and oriented times three. No laboratory or radiographic studies are available for review. ASSESSMENT: 1. Osteoarthritis of bilateral knees, specifically affecting the right knee with the patient status post right total knee arthroplasty, postoperative day #4 having been performed by Dr. Juma Saunders. 2. Gastroesophageal reflux disease. 3. Hypertension. 4. Seasonal allergies. 5. Hyperlipidemia. 6. History of ventricular hypertrophy. PLAN: We will continue with current plan of care with physical therapy to reevaluate in the morning. This patient will be either discharged home or discharge to [facility]. Until the, we will continue to monitor and treat appropriately. [facility][id number] [facility]
[2017-03-06] MEDS: ENOXAPARIN SODIUM 30 MG/0.3 ML SYG SUBCU SCH (11:35)
--- NOTE | 2017-03-23 19:35 | DS ---
SUPERVISING PHYSICIAN: Rolando Julian M.D. DISCHARGE DIAGNOSIS: 1. Osteoarthritis of bilateral knees, specifically affecting the right knee with the patient status post right total knee arthroplasty, postoperative day #5 having been performed by Dr. Juma Saunders. 2. Gastroesophageal reflux disease. 3. Hypertension. 4. Seasonal allergies. 5. Hyperlipidemia. 6. History of ventricular hypertrophy. HISTORY OF PRESENT ILLNESS: Ms. Batista is a 67 year-old female patient that was admitted for elective right knee arthroplasty on 03/01/17. She has a history of severe right knee pain that had progressively worsened over a good deal of time to the point it was affecting daily activities. She had tried multiple efforts at conservative measures and treatments, but due to ongoing symptoms she requested right total knee arthroplasty having been performed by Dr. Juma Saunders. She was seen postoperatively and followed through until discharge. LABORATORY: Postoperative H&H was 9.5 and 27.8. PROCEDURE: 1. Total right knee arthroplasty for osteoarthritis of the knee performed by Dr. Juma Saunders. Please see his report for full details. HOSPITAL COURSE: Ms. Batista is a 67 year-old female patient as noted above that was admitted on 03/01/17 for elective right total knee arthroplasty. She was seen in the immediate postoperative state for consultation. She was followed as she progressed through her rehabilitation efforts. She had no complications medically and on the morning of 03/06/17 was felt well enough and had met her physical therapy goals and rehabilitation efforts, therefore she was discharged in stable condition to continue with outpatient treatment. PLAN: Ms. Batista was discharged on 03/06/17 to have close clinical followup with Dr. Saunders on 03/20/17 at 9:[address] Bar as scheduled. She was to resume her home medications as instructed and take new prescriptions as directed. She will return to the hospital should she have any concerning symptoms. New prescriptions at discharge included: 1. Xarelto 10 mg every day for 6 days. All other medications are resumed as previous. Diet is a regular diet as tolerated. Activity as per Physical Therapy. No tub baths. Can shower. Condition on discharge was stable and improved. [facility][id number] [facility]
== END 2017-03-06 15:36 | disposition swing bed (61) | DRG 470 ==
LOC: AMB 06:00 → MS 11:28
PROVIDERS: ADMIT Orthopaedic Surgery; ATTEND Nurse Practitioner Family
PROC: 0SRC0J9 Replacement of Right Knee Joint with Synthetic Substitute, Cemented, Open Approach (ICD-10-PCS; principal; 2017-03-01 07:07)
DX: M17.11 Unilateral primary osteoarthritis, right knee (principal); Z68.41 Body mass index [BMI] 40.0-44.9, adult; I10 Essential (primary) hypertension; K21.9 Gastro-esophageal reflux disease without esophagitis; E78.5 Hyperlipidemia, unspecified; J30.2 Other seasonal allergic rhinitis; F41.9 Anxiety disorder, unspecified; Z66 Do not resuscitate; E66.9 Obesity, unspecified; Z98.84 Bariatric surgery status; Z96.652 Presence of left artificial knee joint; Z88.8 Allergy status to other drugs, medicaments and biological substances; Z88.3 Allergy status to other anti-infective agents; Z88.0 Allergy status to penicillin; Z88.5 Allergy status to narcotic agent; Z79.899 Other long term (current) drug therapy

== ENCOUNTER 2017-03-27 10:58 | Inpatient (IN) | payer MEDICARE, MEDICAID ==
[2017-03-27] MEDS ORDERED: ALUMINUM & MAGNESIUM HYDROXIDE 30 ML UD PO ONE (11:41)
[2017-03-27] MEDS ORDERED: PANTOPRAZOLE SODIUM TAB 40 MG PO ONE ×2 (11:41→14:08)
--- NOTE | 2017-03-27 12:28 | RAD ---
Study: Frontal and Lateral Views of the Chest. Indication: sob, near syncope Comparison: January 26, 2015. Impression: Heart size normal. Lungs clear. Degenerative changes of the spine noted. Electronically signed by: Nelson Wang MD 03/27/2017 12:26 PM [facility]
[2017-03-27] MEDS ORDERED: diphenhydrAMINE HCL 25 MG CAP PO ONE (12:35)
[2017-03-27] MEDS ORDERED: ACETAMINOPHEN 325 MG TAB PO ONE (12:35)
[2017-03-27] MEDS ORDERED: predniSONE 20 MG TAB PO ONE (12:35)
[2017-03-27] MEDS ORDERED: FAMOTIDINE 20 MG TAB PO ONE (12:36)
[2017-03-27] MEDS ORDERED: SODIUM CHLORIDE 0.9% 1000ML 1,000 ML IVS ONE (12:46)
[2017-03-27] MEDS ORDERED: ACETYLCYSTEIN 20 % 6,000 MG/30 ML VIAL PO ONE (12:47)
--- NOTE | 2017-03-27 12:58 | RAD ---
EXAM DESCRIPTION: Abdomen Flat Upright CLINICAL HISTORY: sob, anemia, hx gastric bypass on ibuprofen COMPARISON: None FINDINGS: 2 views of the abdomen pelvis. Nonobstructive bowel gas pattern is present. No free intraperitoneal gas is demonstrated. Numerous surgical clips seen scattered throughout the abdomen. No organomegaly is demonstrated No pathologic calcifications. Extensive degenerative changes seen throughout the lumbar spine. Lung bases are clear. IMPRESSION: No radiographic findings for acute abdominal or pelvic disease. Electronically signed by: Raúl Atwood MD 03/27/2017 12:56 PM [facility]
--- NOTE | 2017-03-27 14:01 | CT ---
Study: CT angiography of the chest, pulmonary embolus protocol. Indication: sob, 3 weeks post op elevated ddimer,anemia Technique: Axial CT images were acquired through the chest after intravenous administration of contrast utilizing the CT angiography, pulmonary embolus protocol. Computer-generated 3D reconstructions (MIPS) were performed and reviewed. This exam was performed according to our departmental dose-optimization program, which includes automated exposure control, adjustment of the mA and/or kV according to patient size and/or use of iterative reconstruction technique. Comparison: None. Findings: Aberrant right subclavian artery noted. Heart size normal. No pathologically enlarged mediastinal or hilar lymphadenopathy. Mild atherosclerosis aortic arch. No CTA evidence of pulmonary emboli. However, evaluation of the segmental and subsegmental arteries is limited due to poor opacification. Image 253, mm noncalcified right upper lobe pulmonary nodule. Image 30, 3 mm noncalcified right middle lobe pulmonary nodule. Several additional tiny sub-4 mm noncalcified pulmonary nodules throughout the lungs. No consolidation, pleural effusion, or pneumothorax. Degenerative changes of the spine noted. Impression: No CT evidence of central pulmonary embolus. Distal evaluation is however limited. Several tiny noncalcified pulmonary nodules as above. If no risk factors, no additional follow-up required. If positive risk factors, follow-up CT chest in one year recommended. Electronically signed by: Nelson Wang MD 03/27/2017 2:00 PM [facility]
[2017-03-27] MEDS ORDERED: predniSONE 20 MG TAB ONE (14:08)
[2017-03-27] MEDS ORDERED: diphenhydrAMINE HCL 25 MG CAP ONE (14:09)
[2017-03-27] MEDS ORDERED: ALUM & MAG HYDROX-SIMETHICONE 30 ML UD ONE (14:11)
[2017-03-27] MEDS ORDERED: ACETAMINOPHEN 325 MG TAB ONE (14:14)
[2017-03-27] MEDS ORDERED: ACETYLCYSTEIN 20 % 6,000 MG/30 ML VIAL ONE (14:20)
--- NOTE | 2017-03-27 14:37 | ED.PDOC ---
History of Present Illness - General Chief Complaint: Respiratory Problem Stated Complaint: shortness of breath Time Seen by Provider: 03/27/17 11:04 Source: patient Exam Limitations: no limitations - History of Present Illness Initial Comments: the patient is a 67-year-old female presenting to the emergency room from outside clinic secondary to shortness of breath and some dizziness when getting up to move around. The patient is technically tilt positive by blood pressure here today. She has not been throwing up. She has been having some indigestion symptoms. She did have a gastric bypass proximally 7 years ago and is not on any acid reducing medications. She recently underwent a right knee replacement and was placed on a potent blood thinner for 10 days and has been on ibuprofen multiple times daily since that time. She has not noted any frankly melanotic stools and has not been throwing up. She does get short of breath with walking around. She does get a little dizzy when she goes to stand up. No fever. She reports that she has had a blood transfusion in the past. Severity: moderate Improving Factors: rest Worsening Factors: movement Associated Symptoms: shortness of breath Allergies/Adverse Reactions: Allergies Carisoprodol [From Soma] Allergy (Verified 03/27/17 11:18) Meperidine [From Demerol HCl] Allergy (Verified 03/27/17 11:18) Nitrofurantoin [From Macrobid] Allergy (Verified 03/27/17 11:18) Penicillins Allergy (Verified 03/27/17 11:18) Zolpidem [From Ambien] Allergy (Verified 03/27/17 11:18) Home Medications: Ambulatory Orders Acetamin W/Cod #3 Tab [Tylenol w/CODEINE #3] 1 ea PO Q6H PRN 03/01/17 Azelastine Nasal [place] [Astelin Nasal [place]] 0.137 ml APARNA BID 03/01/17 Cyclobenzaprine HCl [Flexeril] 10 mg PO Q8H PRN 03/01/17 Duloxetine HCl [Cymbalta] 60 mg PO BID 03/01/17 Fluticasone Propionate (Nasal) [Fluticasone Propionate] 50 mcg APARNA BEDTIME 03/01 Gabapentin [Neurontin] 300 mg PO TID 03/01/17 Lisinopril [Prinivil] 5 mg PO NOON 03/01/17 Montelukast [Singulair] 10 mg PO BEDTIME 03/01/17 [id number] Ethyl Esters [Lovaza 1 gm] 1 gm PO BID 03/01/17 traZODone HCL [Desyrel] 200 mg PO BEDTIME 03/01/17 Calcium 1,200 mg PO BID 03/02/17 Cholecalciferol [Vitamin D3] 1,000 unit PO DAILY 03/02/17 Cyanocobalamin [Vitamin B12] 1,000 mcg PO NOON 03/02/17 Ibuprofen 200 mg PO DAILY 03/02/17 Magnesium 500 mg PO BID 03/02/17 Vit W/ Ferrous Fumara [] 1 tab PO DAILY 03/02/17 Simethicone [Gas Relief Extra Strength] 2 - 3 tablet PO PRN PRN 03/02/17 Rivaroxaban [Xarelto] 10 mg PO QD #6 tab 03/06/17 Review of Systems - Review of Systems Constitutional: States: malaise, weakness EENTM: States: no symptoms reported Respiratory: States: short of breath Cardiology: States: no symptoms reported Gastrointestinal/Abdominal: States: other - gastritis Genitourinary: States: no symptoms reported Musculoskeletal: States: see HPI Skin: States: no symptoms reported Neurological: States: other - mild dizziness Endocrine: States: no symptoms reported All other Systems: No Change from Baseline Past Medical History (General) - Patient Medical History Hx Seizures: No Hx Stroke: No Hx Asthma: Yes Hx of COPD: No Hx Cardiac Disorders: Yes Hx Congestive Heart Failure: No Hx Pacemaker: No Hx Hypertension: Yes Hx Diabetes: No Hx Gastroesophageal Reflux: Yes Hx MRSA: No Surgical History: other - Vaccination History Hx Tetanus, Diphtheria Vaccination: No Hx Influenza Vaccination: No Hx Pneumococcal Vaccination: No - Social History Hx Tobacco Use: No Hx Alcohol Use: No Hx Substance Use: No Hx Substance Use Treatment: No Hx Depression: Yes Hx Physical Abuse: No Hx Emotional Abuse: No - Female History Patient is a Female of Child Bearing Age (10 -59 yrs old): No Patient : No Family Medical History - Family History Mother Living Status: Hx Family Cancer: Yes Physical Exam - Physical Exam General Appearance: Alert, Comfortable, No apparent distress Eye Exam: bilateral normal - conjunctivae are mildly pale Ears, Nose, Throat: hearing grossly normal, normal ENT inspection, normal pharynx Neck: full range of motion, supple Respiratory: lungs clear, normal breath sounds, no respiratory distress, no accessory muscle use Cardiovascular/Chest: normal peripheral pulses, regular rate, rhythm, no edema Peripheral Pulses: radial,right: 2+, radial,left: 2+, dorsalis pedis,right: 2+, dorsalis pedis,left: 2+ Gastrointestinal/Abdominal: non tender - mild epigastric discomfort palpation, soft Rectal Exam: deferred Back Exam: normal inspection, no CVA tenderness, no vertebral tenderness Extremity: normal range of motion, non-tender, normal inspection, no pedal edema , normal capillary refill Neurologic: water pump servicer II-XII nml as tested, alert, normal mood/affect, oriented x 3 Skin Exam: pallor Comments: Vital Signs - 24 hr 03/27/17 03/27/17 11:03 11:19 Temperature 98.7 F Pulse Rate [ 89 pulse ox] Respiratory 20 20 Rate Blood Pressure 123/59 [Left Arm] O2 Sat by Pulse 97 Oximetry Progress - Progress Progress: 03/27/17 14:39 the patient is 67-year-old female presenting to emergency room secondary to shortness of breath, generalized weakness and a near syncopal episode. The patient is found to be symptomatically anemic. This is likely due to these recent surgery along with the required postoperative blood thinners and the continued anti-inflammatory use with her history of gastric bypass and no GI prophylaxis. The patient was given a dose of Protonix, Pepcid and Maalox here. She is going to be transfused 2 units of packed red blood cells. A dose of prednisone Tylenol and Benadryl are being given currently. She did have a CT angiogram of her chest to rule out a pulmonary embolus as part of the cause of the shortness of breath. No evidence of pulmonary embolus was found. There is no evidence of any brisk GI bleed. She does need to have stool guaiacs performed when she is able to have a bowel movement. This is a more likely source of the anemia. She will need to have anti-inflammatories discontinued for now. She may yet need to have an upper endoscopy performed by GI in the near future if she has any recurrence of the anemia. Admitted for transfusion and monitoring. - Results/Orders Results/Orders: Laboratory Tests 03/27/17 03/27/17 03/27/17 00:48 00:48 11:48 WBC 10.9 H RBC 2.62 L Hgb 8.2 L Hct 24.0 L MCV 91.8 MCH 31.2 H MCHC 34.1 RDW 13.6 Plt Count 317 MPV 6.9 L Absolute Neuts (auto) 8.40 H Absolute Lymphs (auto) 1.50 Absolute Monos (auto) 0.70 Absolute Eos (auto) 0.10 Absolute Basos (auto) 0.10 Neutrophils % 77.1 Lymphocytes % 14.1 L Monocytes % 6.6 Eosinophils % 1.2 Basophils % 1.0 D-Dimer, Quantitative 1831 H* Sodium 136 Potassium 4.3 Chloride 102 Carbon Dioxide 28 Anion Gap 10.3 L BUN 22 H Creatinine 0.73 BUN/Creatinine Ratio 30.1 H Random Glucose 120 H Serum Osmolality 276.5 Calcium 9.3 Total Bilirubin 0.5 AST 19 ALT 15 Alkaline Phosphatase 94 Creatine Kinase 14 L CK-MB (CK-2) 0.7 CK-MB (CK-2) % Not Reportable Troponin I < 0.02 B-Natriuretic Peptide 8.9 Serum Total Protein 6.1 L Albumin 3.4 Globulin 2.7 Albumin/Globulin Ratio 1.3 Urine Color Urine Appearance Urine pH Ur Specific Cecil Urine Protein Urine Glucose (UA) Urine Ketones Urine Blood Urine Nitrite Urine Bilirubin Urine Urobilinogen Ur Leukocyte Esterase Urine RBC Urine WBC Ur Epithelial Cells Urine Bacteria Crossmatch 03/27/17 03/27/17 12:45 14:21 WBC RBC Hgb Hct MCV MCH MCHC RDW Plt Count MPV Absolute Neuts (auto) Absolute Lymphs (auto) Absolute Monos (auto) Absolute Eos (auto) Absolute Basos (auto) Neutrophils % Lymphocytes % Monocytes % Eosinophils % Basophils % D-Dimer, Quantitative Sodium Potassium Chloride Carbon Dioxide Anion Gap BUN Creatinine BUN/Creatinine Ratio Random Glucose Serum Osmolality Calcium Total Bilirubin AST ALT Alkaline Phosphatase Creatine Kinase CK-MB (CK-2) CK-MB (CK-2) % Troponin I B-Natriuretic Peptide Serum Total Protein Albumin Globulin Albumin/Globulin Ratio Urine Color Yellow Urine Appearance Clear Urine pH 6.0 Ur Specific Cecil 1.015 Urine Protein Negative Urine Glucose (UA) Negative Urine Ketones Trace Urine Blood Negative Urine Nitrite Negative Urine Bilirubin Negative Urine Urobilinogen 0.2 Ur Leukocyte Esterase Negative Urine RBC 0 Urine WBC 1-3 Ur Epithelial Cells 3-5 Urine Bacteria 3+ H Crossmatch See Detail EKG shows a normal sinus rhythm. Poor R-wave progression in anterior leads. Q waves in lead 3. No ST segment changes concerning for ischemia. Rate is 88 bpm. Normal corrected QT interval. Chest and abdominal x-rays show no evidence of any acute pathology. CT scan of the chest with IV contrast shows no evidence of any pulmonary emboli. She does have multiple small pulmonary nodules noted. Departure - Departure Clinical Impression: Symptomatic anemia Disposition: Admit Patient Referrals: Deepak Bar III, MD [Primary Care Provider] - 1-2 Weeks Home Medications: Ambulatory Orders Acetamin W/Cod #3 Tab [Tylenol w/CODEINE #3] 1 ea PO Q6H PRN 03/01/17 Azelastine Nasal [place] [Astelin Nasal [place]] 0.137 ml APARNA BID 03/01/17 Cyclobenzaprine HCl [Flexeril] 10 mg PO Q8H PRN 03/01/17 Duloxetine HCl [Cymbalta] 60 mg PO BID 03/01/17 Fluticasone Propionate (Nasal) [Fluticasone Propionate] 50 mcg APARNA BEDTIME 03/01 Gabapentin [Neurontin] 300 mg PO TID 03/01/17 Lisinopril [Prinivil] 5 mg PO NOON 03/01/17 Montelukast [Singulair] 10 mg PO BEDTIME 03/01/17 [id number] Ethyl Esters [Lovaza 1 gm] 1 gm PO BID 03/01/17 traZODone HCL [Desyrel] 200 mg PO BEDTIME 03/01/17 Calcium 1,200 mg PO BID 03/02/17 Cholecalciferol [Vitamin D3] 1,000 unit PO DAILY 03/02/17 Cyanocobalamin [Vitamin B12] 1,000 mcg PO NOON 03/02/17 Ibuprofen 200 mg PO DAILY 03/02/17 Magnesium 500 mg PO BID 03/02/17 Vit W/ Ferrous Fumara [] 1 tab PO DAILY 03/02/17 Simethicone [Gas Relief Extra Strength] 2 - 3 tablet PO PRN PRN 03/02/17 Rivaroxaban [Xarelto] 10 mg PO QD #6 tab 03/06/17 Decision To Admit - Decistion To Admit Decision to Admit Reason: Medical Nature Decision to Admit Date: 03/27/17 Decision to Admit Time: 14:43
[2017-03-27] MEDS ORDERED: ALUMINUM & MAGNESIUM HYDROXIDE 30 ML UD ONE (14:40)
[2017-03-27] MEDS ORDERED: FAMOTIDINE 20 MG TAB ONE (14:43)
--- NOTE | 2017-03-27 15:34 | HP ---
SUPERVISING PHYSICIAN: Keegan Lawrence M.D. CHIEF COMPLAINT: Shortness of breath and weakness. HISTORY OF PRESENT ILLNESS: Ms. Batista is a 67 year-old female patient that presented to the Emergency Room today referred from the clinic secondary to shortness of breath and some dizziness with exertion. The patient had positive tilt blood pressures on arrival. She has a history of recently having a total right knee arthroplasty on 03/01/17 and had been on Xarelto as well as having been on Ibuprofen postoperatively. She noted she had been having some indigestion and does not currently take any type of acid reducing medication. She denied any melenic stools or any nausea. Her biggest complaint was shortness of breath and dizziness with exertion and near syncopal episodes. Initial H&H in the Emergency Department showed that her hemoglobin was 8.2, hematocrit 24.0. She also had a D-dimer given the shortness of breath completed and of course it was elevated as she just had recently complete total knee replacement and it was 1831. Given the risk factors and the D-dimer findings and shortness of breath, a CTA of the chest to rule out pulmonary embolism was completed and per radiology interpretation there was no CTA evidence of central pulmonary embolus. Transfusion was ordered in the Emergency Department. She was started on IV fluids for the dehydration and now is to be admitted to the Medical/Surgical floor for ongoing treatment and further evaluation. She was admitted in stable condition. PAST MEDICAL HISTORY: 1. Hypertension. 2. Gastroesophageal reflux disease. 3. Hyperlipidemia. 4. Left ventricular hypertrophy. 5. Osteoarthritis. 6. History of nephrolithiasis. 7. Obesity. 8. Seasonal allergies. PAST SURGICAL HISTORY: 1. Right knee total arthroplasty performed on 03/01/17. 2. 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 3. Gastric bypass surgery. 4. Tonsillectomy. 5. Dilatation and curettage of a fibroid mass. 6. Splenectomy. 7. Panniculectomy. 8. Laminectomy and discectomy of lower back. 9. Carpal tunnel surgery. 10. Left total knee arthroplasty. OUTPATIENT MEDICATIONS: 1. Lovaza 2 caplets daily. 2. Neurontin 300 mg 3 times a day. 3. Flonase 50 mcg at bedtime. 4. Cymbalta 60 mg b.i.d. 5. Flexeril 10 mg every 8 hours as needed. 6. Trazodone 200 mg at bedtime. 7. Gas Relief extra strength 2 to 3 tablets as needed. 8. Singulair 10 mg at bedtime. 9. Prinivil 5 mg at noon. 10. Tylenol #3 one every 6 hours as needed for pain. 11. vitamin with ferrous fumarate 1 tablet daily. 12. Magnesium. 13. Ibuprofen 200 mg daily. 14. Vitamin B12 1,000 mcg at noon. 15. Vitamin D3 1,000 units daily. 16. Calcium 1200 mg twice daily. 17. Azelastine nasal spray 0.137 mL nasally twice daily. ALLERGIES: AMBIEN, MACROBID, PENICILLIN, SOMA AND DEMEROL. FAMILY HISTORY: Unremarkable. SOCIAL HISTORY: The patient is single. She is unmarried. She has no children. She denies any tobacco, alcohol or illicit drug use. REVIEW OF SYSTEMS: CONSTITUTIONAL: As noted in History of Present Illness. General malaise and weakness. HEENT: No headaches, vision changes, decreased hearing. RESPIRATORY: As noted in History of Present Illness. Shortness of breath worsening with any exertional effort. CARDIOVASCULAR: No chest pains, palpitations, but has noted she had a near syncopal episode. GASTROINTESTINAL: As noted in history of present illness. GENITOURINARY: Denies any dysuria, hematuria, polyuria or other urinary symptoms. NEUROLOGIC: Reports some dizziness, near syncopal episode but denies any neurological deficits. PHYSICAL EXAMINATION: VITAL SIGNS: Temperature on admission was 98.0, pulse 95, blood pressure 126/76 , respirations 18, satting 98% on room air. Weight 103.7 kg. GENERAL: The patient on admission to the Medical/Surgical floor shows to be tired, pale, but in no acute distress. HEENT: Tympanic membranes are clear bilaterally. Oropharynx is pink, mildly dry mucosal membranes. NECK: Supple, non-tender with full. range of motion CHEST: Lungs are clear to auscultation bilaterally. No wheezing, rhonchi or rales. CARDIOVASCULAR: Regular rate and rhythm without appreciable murmurs, gallops, or rubs. ABDOMEN: Non-tender. There was some notable just mild epigastric discomfort on palpation. No rebound tenderness. Bowel sounds were present. EXTREMITIES: No clubbing, cyanosis or edema. NEUROLOGIC: She was alert and oriented times three. Cranial nerves II-XII are grossly intact. Facial features are symmetrical. Extraocular movements are within normal limits. There is no notable nystagmus. INTEGUMENT: Pale skin tone with no diaphoresis. No lesions or rashes noted. LABORATORY: CBC showed a white count 10,900 with initial hemoglobin of 8.2, hematocrit 24.0, platelet count 317,000. Differential showed to be without a left shift. After a liter and a half of fluids prior to admission to the Medical/Surgical floor, repeat of H&H showed that she had dropped to 7.5 and 22.4. Coagulation studies showed an elevated D-dimer of 1831. Chemistries showed normal electrolytes with potassium 4.3 with BUN 22, creatinine 0.73, glucose 120. Liver functions within normal limits. BNP was normal at 8.9. Urinalysis showed to be within normal limits. She had 1 occult blood that was positive prior to admission. RADIOLOGY: Chest x-ray in the Emergency Department prior to admission per radiology interpretation showed normal heart size, lung to be clear. She also had an abdominal series and per radiology interpretation no radiographic findings for acute abdominal or pelvic disease. She then had a chest thoracic CTA to rule out pulmonary embolism and per radiology interpretation no CTA evidence of central pulmonary embolus was noted. Distal evaluation was limited. There were several noncalcified pulmonary nodules as noted in the main report body. Please refer to that report for full details. ASSESSMENT: 1. Gastrointestinal bleed likely peptic ulcer disease from exacerbation from both Xarelto and frequent Ibuprofen usage with the patient being somewhat orthostatic. 2. Acute blood loss, symptomatic anemia. 3. Elevated D-dimer with the patient having recent major surgery with CTA of the chest ruling out pulmonary embolism. 4. Exertional dyspnea secondary to anemia. 5. History of gastroesophageal reflux disease not previously on gastric protection. 6. Hypertension. 7. Hyperlipidemia. 8. History of left ventricular hypertrophy. 9. Osteoarthritis. 10. History of nephrolithiasis. 11. Obesity a noted with a body mass index of 40. 12. Seasonal allergies. PLAN: The patient will be admitted to the hospital for transfusion of 2 units of packed cells as it was noted after some fluids for rehydration she had dropped her H&H. She has only had one melenic stool that was positive on occult blood. Denies any bright red blood. Symptoms are more likely from slow production and exacerbated by acute loss in the last several weeks from multiple medications associate with risks with possible gastric bleeding, including Xarelto postoperatively and daily Ibuprofen. She will be started on Protonix 80 mg IV and then scheduled 40 mg b.i.d. Will monitor labs closely. Repeat her H&H after she has had 2 units of packed red blood cells. Will do stool occult blood. Should she show to be stable after transfusion for at least 24 to 48 hours, certainly could be discharged to followup close clinically with her primary care physician, Dr. Bar, as well as GI Specialty. If she show any hemodynamic instability despite transfusion, certainly will need transfer for a more acute GI consultation. Until discharge, will continue to monitor the patient closely. Resume her home medications once they have been updated and verified. Will also plan to get a Physical Therapy consultation given postoperative state and anticipate again discharging in the next 24 to 48 hours. Until then, continue to monitor and treat appropriately. #[id number] MTDD
[2017-03-27] MEDS ORDERED: SODIUM CHLORIDE 0.9% (FLUSH) 10 ML SYG IV PRN ×2 (16:14→16:16)
[2017-03-27] MEDS ORDERED: ACETAMINOPHEN 325 MG TAB PO PRN (16:16)
[2017-03-27] MEDS ORDERED: PANTOPRAZOLE SODIUM IV 40 MG VIAL IV ONE (16:20)
[2017-03-27] MEDS ORDERED: PANTOPRAZOLE INJECTION 40 MG in SODIUM CHLORIDE 0.9% 100ML 100 ML IVPB ONE (16:25)
[2017-03-27] MEDS ORDERED: IV SET AND CAP CHANGE INJ INJ SCH ×2 (16:30)
[2017-03-27] MEDS ORDERED: PANTOPRAZOLE SODIUM IV 40 MG VIAL IV SCH (16:30)
[2017-03-27] MEDS ORDERED: SODIUM CHLORIDE 0.9% 500ML 500 ML ONE (16:31)
[2017-03-27] MEDS ORDERED: SODIUM CHLORIDE 0.9% 500ML 500 ML IVS SCH (17:00)
[2017-03-27] MEDS ORDERED: DULoxetine HCL 30 MG CAP PO ONE (19:30)
--- NOTE | 2017-03-27 20:13 | PCM.CORE ---
Physician DVT/VTE - Contraindications Medication Contraindication: Medical Contraindication - acute GI bleed - Nurse DVT Assessment & Total Each Risk Factor Represents 2 Points: Age 60-74 Each Risk Factor Represents 1 Point: Hx Major Surgery <1month Each Risk Factor is 1 Point: Obesity (BMI >25) DVT Assessment Score: 4 - 5 or more Very High Risk Treatments: Early Ambulation *, Sequential Compression Device
[2017-03-27] MEDS ORDERED: NON-FORMULARY MEDICATION 1 EA MIS (Duloxetine Hcl [Cymbalta] 60 MG) PO SCH (21:00)
[2017-03-27] MEDS ORDERED: NON-FORMULARY MEDICATION 1 EA MIS (Fluticasone Propionate (Nasal) [Fluticasone Propionate] NAS SCH (21:00)
[2017-03-27] MEDS: traZODone HCL 100 MG TAB PO SCH (21:46)
[2017-03-27] MEDS: GABAPENTIN 300 MG CAP PO SCH ×2 (21:46)
[2017-03-27] MEDS: MONTELUKAST 10 MG TAB PO SCH (21:47)
[2017-03-27] MEDS: HYDROcodone 5MG/APAP 325MG 1 EA TAB PO PRN (21:47)
[2017-03-28] MEDS: HYDROcodone 5MG/APAP 325MG 1 EA TAB PO PRN ×6 (02:03→23:55)
[2017-03-28] MEDS ORDERED: CALCIUM 1200 MG PO SCH (09:00)
[2017-03-28] MEDS ORDERED: MAGNESIUM 500 MG PO SCH (09:00)
[2017-03-28] MEDS ORDERED: MULTIPLE VITAMIN 1 EA TAB PO SCH (09:00)
[2017-03-28] MEDS ORDERED: LISINOPRIL 5 MG TAB ONE (09:53)
[2017-03-28] MEDS: GABAPENTIN 300 MG CAP PO SCH ×2 (10:04→20:50)
[2017-03-28] MEDS: PRENATAL MULTIVIT-MIN W/FE-FA 1 EA TAB PO SCH (10:04)
[2017-03-28] MEDS: FISH OIL 1,200 MG CAP PO SCH (10:04)
[2017-03-28] MEDS: CALCIUM CARBONATE-VITAMIN D 500 MG TAB PO SCH ×2 (10:04→20:49)
[2017-03-28] MEDS: MAGNESIUM OXIDE 400 MG TAB PO SCH ×2 (10:04→20:49)
[2017-03-28] MEDS: DULoxetine HCL 30 MG CAP PO SCH ×2 (10:05→20:49)
[2017-03-28] MEDS ORDERED: ONDANSETRON INJ 4 MG/2 ML VIAL IV PRN (12:19)
[2017-03-28] MEDS: LISINOPRIL 5 MG TAB PO SCH (13:41)
[2017-03-28] MEDS: CYANOCOBALAMIN 1,000 MCG TAB PO SCH (14:36)
[2017-03-28] MEDS: MONTELUKAST 10 MG TAB PO SCH (20:49)
[2017-03-28] MEDS: traZODone HCL 100 MG TAB PO SCH (20:49)
[2017-03-28] MEDS ORDERED: LORATADINE 10 MG TAB PO SCH (21:00)
[2017-03-28] MEDS ORDERED: FLUTICASONE PROP 0.05% NASAL 16 GM BTTL BNAS SCH (21:00)
[2017-03-29] MEDS: HYDROcodone 5MG/APAP 325MG 1 EA TAB PO PRN ×4 (06:29→16:08)
--- NOTE | 2017-03-29 08:58 | PN ---
SUPERVISING PHYSICIAN: Keegan Lawrence MD DATE: 03/28/17 SUBJECTIVE: The patient received 2 units of packed red blood cells last night without any complications. This morning, she is afebrile. She reports she has a little more energy and feels much better compared to admission. She denies any additional melenic or tarry looking stools. She has had some mild nausea, but no emesis. OBJECTIVE: VITAL SIGNS: Temperature 98. Pulse 82. Blood pressure 105/81. Respiratory rate 18. Oxygen saturation 95% on room air. CHEST: Lungs clear to auscultation. HEART: Regular rate and rhythm. ABDOMEN: Soft, nontender. Positive bowel sounds. EXTREMITIES: No cyanosis, clubbing or edema. NEUROLOGIC: Alert and oriented times three. LABORATORY: This morning, hemoglobin 9.1, hematocrit 26.7 after 2 units of packed red blood cells. Platelet count 260,000. Chemistries showed normal electrolytes with potassium 3.6, BUN 12, creatinine 0.55. Liver functions within normal limits. MICROBIOLOGY: No additional occult bloods on stools were collected. No microbiology specimens were collected. ASSESSMENT: 1. Gastrointestinal bleed, likely peptic ulcer disease from exacerbation from both Xarelto and frequent ibuprofen usage with the patient being somewhat orthostatic on admission, showing improvement after infusion of 2 units of packed red blood cells with no additional signs of active bleeding. 2. Acute blood loss with symptomatic anemia, secondary to #1. 3. Elevated D-dimer with the patient having recent major surgery with CTA of the chest ruling out pulmonary embolism. 4. Exertional dyspnea secondary to the underlying anemia, improved with blood transfusion. 5. History of gastroesophageal reflux disease not previously on a proton pump inhibitor for gastric protection. 6. Hypertension. 7. Hyperlipidemia. 8. History of left ventricular hypertrophy. 9. Osteoarthritis. 10. History of nephrolithiasis. 11. Obesity a noted with a body mass index of 40. 12. Seasonal allergies. PLAN: We will plan to repeat hemoglobin and hematocrit later today to further assess for stability of her blood count. We will need to get a consultation tomorrow hopefully with GI specialty in the special clinical tomorrow here at [place] with Dr. Andrade or at least arrange for a followup upon discharge. Again , she will need to be off any ibuprofen or NSAIDs. She was started on Protonix and continued at 40 mg b.i.d. We will reassess in the morning clinically and await hopefully the consultation. We will continue to await additional occult blood on stool and monitor her hemoglobin and hematocrit closely. We will hopefully be able to discharge later tomorrow. Once discharged, she will need to see Dr. Bar in followup and hopefully have consultation prior to discharge with GI specialist. Until discharge, we will continue to monitor the patient closely and treat appropriately. #[id number] [facility]
[2017-03-29] MEDS ORDERED: GABAPENTIN 300 MG CAP PO SCH (09:00)
[2017-03-29] MEDS: FISH OIL 1,200 MG CAP PO SCH (09:35)
[2017-03-29] MEDS: DULoxetine HCL 30 MG CAP PO SCH (09:35)
[2017-03-29] MEDS: MAGNESIUM OXIDE 400 MG TAB PO SCH (09:35)
[2017-03-29] MEDS: CALCIUM CARBONATE-VITAMIN D 500 MG TAB PO SCH (09:35)
[2017-03-29] MEDS: PRENATAL MULTIVIT-MIN W/FE-FA 1 EA TAB PO SCH (09:35)
[2017-03-29] MEDS ORDERED: LACTATED RINGERS 1,000 ML ONE (09:48)
--- NOTE | 2017-03-29 10:27 | OP ---
DATE OF PROCEDURE: 03/29/17 PREPROCEDURE DIAGNOSIS: 1. Gastrointestinal bleed. POSTPROCEDURE DIAGNOSIS: 1. Marginal ulcer. 2. Hiatal hernia. 3. Status post Diana-en-Y gastric bypass. PROCEDURE: 1. Upper endoscopy. SURGEON: Kvng Lindquist MD SEDATION: The patient was sedated via IV propofol by the Anesthesia Department. COMPLICATIONS: No immediate complications. CONSENT: Prior to the procedure, risks, benefits and alternatives to the therapy were discussed with the patient. The risks included bleeding, infection , perforation and . The patient agreed to the procedure and signed a consent. Preprocedure anesthesia assessment and examination revealed no contraindication to sedation. Mallampati score 2. ASA grade assessment type 3. Throughout the procedure, the patient's blood pressure, pulse and oxygen saturation were monitored continuously. PROCEDURE: The patient was placed in the left lateral decubitus. Bite block was placed in the mouth between the teeth. The Olympus endoscope was introduced through the oropharynx, esophagus, stomach and the second portion of the duodenum. The scope was retracted and mucosa visualized. The entirety of the exam was performed with direct visualization. Retroflexion was performed in the stomach. The patient tolerated the procedure well. FINDINGS: A small hiatal hernia was seen at the gastroesophageal junction. The diaphragmatic pinch was seen at 40 cm and the gastric folds were seen at 37 cm from the incisors. Evidence of prior gastric surgery was seen, characterized by a gastrojejunal anastomosis and a small to medium sized pouch. This likely reflects a prior Diana-en-Y gastric bypass. A cratered 50 mm ulcer was seen over the anastomosis site. No stigma of recent bleeding was seen within the ulcer base. Rolbes classification type 3. The scope was advanced into the afferent limb of the jejunum with no evidence of lesions and normal appearing mucosa was seen. The remainder of the endoscopic examination was within normal limits. IMPRESSION: 1. Upper gastrointestinal bleeding, marginal ulcer at anastomotic site. 2. Medium sized hiatal hernia. RECOMMENDATION: 1. Return the patient to the hospital fatima. 2. Resume regular diet. 3. Continue omeprazole 40 mg p.o. bid for at least 8 weeks. 4. Avoid NSAIDs. 5. Avoid alcohol use and smoking. 6. Check stool antigens for H. pylori. 7. Return to my office, Dr. Andrade, in [facility] in the next 1 to 2 weeks after discharge. 8. Findings were discussed with the patient and family members as well as the referring physician. #[id number] MAKSIM
[2017-03-29] MEDS: LISINOPRIL 5 MG TAB PO SCH (11:43)
[2017-03-29] MEDS ORDERED: PROPOFOL 200 MG/20 ML VIAL IV ONE (12:00)
[2017-03-29] MEDS ORDERED: OMEPRAZOLE CAP 20 MG CAP ONE (13:53)
[2017-03-29] MEDS: CYANOCOBALAMIN 1,000 MCG TAB PO SCH (13:55)
[2017-03-29] MEDS ORDERED: OMEPRAZOLE CAP 20 MG CAP PO SCH (14:00)
[2017-03-29 15:40] VITALS: BP 98/65; TEMP 98.9; O2SAT 98
--- NOTE | 2017-03-29 15:51 | DS ---
SUPERVISING PHYSICIAN: Keegan Lawrence MD DISCHARGE DIAGNOSIS: 1. Gastrointestinal bleed, likely peptic ulcer disease from exacerbation from both Xarelto and frequent ibuprofen usage with the patient being somewhat orthostatic on admission, showing improvement after infusion of 2 units of packed red blood cells with no additional signs of active bleeding. 2. Acute blood loss with symptomatic anemia, secondary to #1. 3. Elevated D-dimer with the patient having recent major surgery with CTA of the chest ruling out pulmonary embolism. 4. Exertional dyspnea secondary to the underlying anemia, improved with blood transfusion. 5. History of gastroesophageal reflux disease not previously on a proton pump inhibitor for gastric protection. 6. Hypertension. 7. Hyperlipidemia. 8. History of left ventricular hypertrophy. 9. Osteoarthritis. 10. History of nephrolithiasis. 11. Obesity a noted with a body mass index of 40. 12. Seasonal allergies. HISTORY OF PRESENT ILLNESS: This is a 67-year-old female patient that presented to the Emergency Room on date of admission due to shortness of breath and some dizziness with exertion. The patient had positive tilt blood pressures on arrival. She has a history of recently having a total right knee arthroplasty on 03/01/17 and had been on Xarelto postoperative and also taking ibuprofen. She had been complaining of some indigestion and does not currently take any type of acid reducing medication. She denied any bloody stools or any nausea. Her biggest complaint was shortness of breath and dizziness with exertion and near syncopal episodes. Initial H&H in the Emergency Department showed that her hemoglobin was 8.2, hematocrit 24.0. D-dimer given was also elevated at 1831. A CTA of the chest was done with no evidence of central pulmonary embolus. Elevated D-dimer was most likely due to recent knee surgery. She was also given some fluids and her followup hemoglobin was 7.5 and hematocrit 22.4. She received 2 units of packed red blood cells. Her H&H came up to hemoglobin 10.[address] Andrade, lime supervisor , was consulted this morning. He did an EGD on her. She has a history of Diana- en-Y gastric bypass surgery and he determined that she had some ulcerations around the anastomosis site from her previous surgery. He recommended she stop all NSAIDs, take omeprazole twice a day and followup with him in one month. Post procedure, she is stable. Her vital signs are stable. She is to be discharged home in stable condition. DISCHARGE PLAN: The patient will be discharged home in stable condition. She is to resume her previous medications with the exception that she is to discontinue ibuprofen and all NSAIDs. She has a followup appointment with Dr. Bar on 04/06/17 at 2 PM[address] spoke with Dr[address] Bar and he agreed that she could be on some [place] for her pain until he can evaluate her at her followup appointment. I have also ordered omeprazole twice a day as recommended by Dr. Andrade. She will also need an H. pylori and a C. difficile on a stool. If she is unable to get that in the hospital before she leaves, she will be sent with an outpatient requisition. Dr. Bar' office will need to get a followup appointment with Dr. Andrade when he comes to clinic here in [place] in April. She is to call Dr. Bar' office or return to the hospital for any further problems or complications. DISCHARGE MEDICATIONS: 1. Gabapentin. 2. Fluticasone. 3. Trazodone. 4. Cyclobenzaprine. 5. Singulair. 6. Lisinopril. 7. Cymbalta. 8. Multivitamins. 9. Magnesium. 10. Calcium. 11. Simethicone. 12. Lovaza. 13. [place] 3. 14. Loratadine. 15. Cyanocobalamin. 16. Acetaminophen with codeine. 17. Hydrocodone. 18. Omeprazole. Dr. Lawrence is the collaborating physician and available for consultation. #[id number] [facility]
== END 2017-03-29 16:50 | disposition home or self-care (01) | DRG 393 ==
LOC: ER 10:58 → MS 15:32
PROVIDERS: ADMIT Nurse Practitioner Family; ATTEND Nurse Practitioner Acute Care
PROC: 30233N1 Transfusion of Nonautologous Red Blood Cells into Peripheral Vein, Percutaneous Approach (ICD-10-PCS; principal; 2017-03-27)
PROC: B32TYZZ Computerized Tomography (CT Scan) of Left Pulmonary Artery using Other Contrast (ICD-10-PCS; 2017-03-27)
PROC: B32SYZZ Computerized Tomography (CT Scan) of Right Pulmonary Artery using Other Contrast (ICD-10-PCS; 2017-03-27)
PROC: 0DJ08ZZ Inspection of Upper Intestinal Tract, Via Natural or Artificial Opening Endoscopic (ICD-10-PCS; 2017-03-27)
DX: K91.89 Other postprocedural complications and disorders of digestive system (principal); K28.4 Chronic or unspecified gastrojejunal ulcer with hemorrhage; D62 Acute posthemorrhagic anemia; Z68.41 Body mass index [BMI] 40.0-44.9, adult; K95.89 Other complications of other bariatric procedure; Y83.2 Surgical operation with anastomosis, bypass or graft as the cause of abnormal reaction of the patient, or of later complication, without mention of misadventure at the time of the procedure; K44.9 Diaphragmatic hernia without obstruction or gangrene; K21.9 Gastro-esophageal reflux disease without esophagitis; E66.9 Obesity, unspecified; J45.909 Unspecified asthma, uncomplicated; R79.1 Abnormal coagulation profile; E86.0 Dehydration; I10 Essential (primary) hypertension; E78.5 Hyperlipidemia, unspecified; M19.90 Unspecified osteoarthritis, unspecified site; Z96.653 Presence of artificial knee joint, bilateral; Z79.52 Long term (current) use of systemic steroids; Z88.0 Allergy status to penicillin; Z88.8 Allergy status to other drugs, medicaments and biological substances; Z79.01 Long term (current) use of anticoagulants; Z79.1 Long term (current) use of non-steroidal anti-inflammatories (NSAID); Z88.1 Allergy status to other antibiotic agents; Z88.5 Allergy status to narcotic agent

== ENCOUNTER → 2017-07-18 | Outpatient (CLI) | payer MEDICARE, MEDICAID | LOC: GMAL 11:16 | PROVIDERS: ATTEND Family Medicine | DX: D51.3 Other dietary vitamin B12 deficiency anemia (principal); D50.0 Iron deficiency anemia secondary to blood loss (chronic); R53.82 Chronic fatigue, unspecified; E55.9 Vitamin D deficiency, unspecified ==

== ENCOUNTER → 2017-08-17 | Outpatient (CLI) | payer MEDICARE, MEDICAID ==
--- NOTE | 2017-08-17 10:50 | RAD ---
EXAM DESCRIPTION: Knee,Right Complete CLINICAL HISTORY: 67 years Female, PAIN COMPARISON: Radiographs of the pelvis and ultrasound of the thyroid gland on the same visit. Right knee Pre-operative images 06/07/2016. TECHNIQUE: Standing AP, lateral 45 degrees flexion, AP 45 degrees flexion, and patellar sunrise view right knee. FINDINGS: Right knee arthroplasty. Components in customary position and near-anatomic alignment. The bones surrounding the components is unremarkable. No abnormal radiodense objects in the soft tissues or joint spaces.. IMPRESSION: Right total knee arthroplasty in customary position, near-anatomic alignment. No bony complications. Electronically signed by: Florentin Sims MD 08/17/2017 10:47 AM CDT
--- NOTE | 2017-08-17 10:54 | RAD ---
EXAM DESCRIPTION: Pelvis CLINICAL HISTORY: 67 years Female, PAIN COMPARISON: Radiographs of the right knee and ultrasound of the thyroid gland today. AP pelvis radiograph 06/07/2016. TECHNIQUE: AP pelvis. FINDINGS: Overall bone density is heterogeneously decreased. No fractures. Minimal hip joint space narrowing bilaterally symmetric. No hip fracture or dislocation. Arthrosis in the bilateral SI joints and pubic symphysis. Enthesophytes of bilateral iliac crest. Spondylosis lower lumbar spine. Multiple surgical clips overlying the upper pelvis. No abnormal radiodense objects in the soft tissues or joint spaces. IMPRESSION: Heterogeneously loss of bone density. Mild arthrosis hip joints bilateral SI joints and pubic symphysis. Spondylosis lower lumbar spine. No acute bony abnormality. Electronically signed by: Florentin Sims MD 08/17/2017 10:51 AM CDT
== END ==
LOC: RAD 08:06
PROVIDERS: ATTEND Orthopaedic Surgery
DX: M25.561 Pain in right knee (principal); M25.551 Pain in right hip; Z96.651 Presence of right artificial knee joint; M47.896 Other spondylosis, lumbar region

== ENCOUNTER → 2017-10-27 | Outpatient (CLI) | payer MEDICARE, MEDICAID | LOC: LAB.O 17:59 | PROVIDERS: ATTEND Nurse Practitioner Family | DX: R19.7 Diarrhea, unspecified (principal) ==

== ENCOUNTER → 2018-01-16 | Outpatient (CLI) | payer MEDICARE, MEDICAID | LOC: GMAL 14:19 | PROVIDERS: ATTEND Family Medicine | DX: D50.8 Other iron deficiency anemias (principal) ==

== ENCOUNTER → 2018-08-10 | Outpatient (CLI) | payer MEDICARE, MEDICAID | LOC: LAB.O 09:01 | PROVIDERS: ATTEND Nurse Practitioner Psychiatric/Mental Health | DX: Z79.899 Other long term (current) drug therapy (principal) ==

== ENCOUNTER → 2019-01-18 | Outpatient (CLI) | payer MEDICARE, MEDICAID | LOC: CT 10:23 | PROVIDERS: ATTEND Nurse Practitioner Family | DX: M47.896 Other spondylosis, lumbar region (principal); K42.9 Umbilical hernia without obstruction or gangrene; K57.30 Diverticulosis of large intestine without perforation or abscess without bleeding; K59.00 Constipation, unspecified; R16.0 Hepatomegaly, not elsewhere classified; N85.2 Hypertrophy of uterus; Z98.890 Other specified postprocedural states; Z98.84 Bariatric surgery status ==

== ENCOUNTER → 2019-10-09 | Outpatient (CLI) | payer MEDICARE, MEDICAID ==
--- NOTE | 2019-10-09 16:13 | CT ---
EXAM DESCRIPTION: Lumbar Spine: Computed Tomography. CLINICAL HISTORY: 69 years Female LUMBAR RADICULOPATHY COMPARISON: None Available. TECHNIQUE: Spiral, axial 2.5 x 2.5 mm scans through the lumbar spine without contrast. Coronal and sagittal 2.0 mm Reconstructions. Total Exam DLP: 546 mGy-cm. This exam was performed according to our departmental dose-optimization program which includes automated exposure control, adjustment of the mA and/or kV according to patient size and/or use of iterative reconstruction technique; to reduce radiation dose to as low as reasonably achievable (ALARA). FINDINGS: L5-S1: Mild disc space loss with desiccated disc gas formation in the disc space. Circumferential endplate spurs. Bilateral degenerative hypertrophy of the facet joints and ligaments. AP canal diameter 11 mm. Moderate narrowing of the left foramen and near stenosis of the right foramen. L4-L5: Desiccated disc gas formation in the disc space with minimal disc space loss. Mostly in the midline into the left of midline. Endplate reactive changes and inferior L4 Schmorl's node. Posterior disc bulge with spurs to the left of midline. Posterior partial bilateral laminectomy and decompression. Bilateral hypertrophic facet joints. Severe foraminal narrowing on the left and moderate to severe foraminal narrowing on the right. L3-L4: Diffuse disc space loss and broad endplate sclerosis. Circumferential endplate hypertrophy. Posterior disc bulge and spur formation. Hypertrophy of the canal elements. Severe foraminal narrowing or mild stenosis on the left and severe foraminal narrowing on the right. AP canal diameter 10 mm. L2-L3: Diffuse desiccated disc gas in the disc space with moderate loss. Endplate sclerosis and endplate defects greater in the midline. Anterior and posterior endplate spurs. Degenerative hypertrophy of the canal elements with AP canal diameter 9 mm. Moderate foraminal narrowing on the right and severe foraminal narrowing on the left. L1-L2: Minimal disc space loss with anterior desiccated disc gas. Anterior endplate ridging and minimal posterior bulging. Bilateral hypertrophic degenerated canal elements. AP canal diameter 12 mm. No foraminal stenosis. T12-L1: Posterior disc space loss. Anterior disc bulge and endplate spurs to the right of midline. Tiny posterior bulge. Minimal degenerative hypertrophy of the facet joints. Mild canal narrowing. No foraminal stenosis. Minimal upper lumbar levoscoliosis. No compression type vertebral body fractures. Posterior elements are intact. IMPRESSION: 1. Multiple levels of endplate spondylosis from L1-L2 to T12-L1. Multiple levels of hypertrophic degenerated facets and posterior flavum ligaments. 2. Advanced spondylosis at L3-L4 level. Possible left foraminal stenosis. 2. Advanced spondylosis L2-L3 more severe in the midline into the right of midline. Mild central canal stenosis. 2. Severe foraminal narrowing on the left at L4-L5 with posterior decompression. Electronically signed by: Florentin Sims MD 10/09/2019 4:11 PM CDT
== END ==
LOC: CT 10:00
PROVIDERS: ATTEND Psychiatry & Neurology Neurology
DX: M51.16 Intervertebral disc disorders with radiculopathy, lumbar region (principal); M47.895 Other spondylosis, thoracolumbar region; M47.896 Other spondylosis, lumbar region; M48.061 Spinal stenosis, lumbar region without neurogenic claudication; M24.28 Disorder of ligament, vertebrae; M46.96 Unspecified inflammatory spondylopathy, lumbar region

== ENCOUNTER → 2019-10-10 | Outpatient (CLI) | payer MEDICARE, MEDICAID ==
--- NOTE | 2019-10-11 09:14 | MRI ---
PROVIDED CLINICAL HISTORY/REASON FOR EXAM: DISC DISORDER TECHNIQUE: Multiplanar, multisequence MRI examination performed of the lumbar spine without intravenous contrast material. COMPARISON: 10/09/2019 FINDINGS: Five lumbar type vertebra are assumed. The designated L5/S1 disc space is at axial T2 image 3. Alignment: No acute subluxation. Fracture: None present. Paraspinal Soft Tissues: Unremarkable. Retroperitoneum: Visible structures are unremarkable. Conus Medullaris: Termination at L1 level. Morphology is normal. L1/2: Disc desiccation with loss of disc space height and endplate degenerative change. Bilateral facet hypertrophy with thickening of the ligamentum flavum. No significant central canal stenosis. Small symmetric disc bulge osteophyte complex. No neural foraminal narrowing. L2/3: Disc desiccation with loss of disc space height and endplate degenerative change. Moderate diffuse symmetric disc bulge. Bilateral facet hypertrophy with thickening of the ligamentum flavum. Mild/moderate central canal stenosis. Moderate right and mild left neural foraminal narrowing. L3/4: Disc desiccation with loss of disc space height and endplate degenerative change. Diffuse symmetric disc bulge osteophyte complex. Mild/moderate central canal stenosis. Bilateral facet hypertrophy with thickening of the ligamentum flavum. Mild/moderate bilateral neural foraminal narrowing. L4/5: Disc desiccation with loss of disc space height and endplate degenerative change. Posterior decompression. Mild central canal stenosis. Bilateral facet hypertrophy. Moderate bilateral neural foraminal narrowing. L5/S1: Disc desiccation with loss of disc space height and endplate degenerative change. Diffuse symmetric disc bulge with a posterior annular fissure. Superimposed left paracentral disc protrusion. Bilateral facet hypertrophy. Mild left and moderate right neural foraminal narrowing. No significant central canal stenosis. IMPRESSION: Multilevel lumbar spondylosis most pronounced at L2/L3 and L4/L5 as above. Electronically signed by: Andrew Ying MD 10/11/2019 9:13 AM CDT
== END ==
LOC: MRI 14:00
PROVIDERS: ATTEND Psychiatry & Neurology Neurology
DX: M51.16 Intervertebral disc disorders with radiculopathy, lumbar region (principal); M47.896 Other spondylosis, lumbar region

== ENCOUNTER → 2019-11-05 | Outpatient (CLI) | payer MEDICARE, MEDICAID | LOC: GMAL 16:38 | PROVIDERS: ATTEND Family Medicine | DX: D51.3 Other dietary vitamin B12 deficiency anemia (principal); E55.9 Vitamin D deficiency, unspecified; I10 Essential (primary) hypertension; E78.2 Mixed hyperlipidemia; Z79.899 Other long term (current) drug therapy ==

== ENCOUNTER → 2019-12-11 | Outpatient (CLI) | payer MEDICARE, MEDICAID ==
--- NOTE | 2019-12-12 08:43 | NM ---
EXAM DESCRIPTION: Bone Scan, Whole Body: Nuclear Medicine CLINICAL HISTORY: 69 years Female RHEUMATISM COMPARISON: CT scan and MRI scan lumbar spine October 08 and . TECHNIQUE: Patient injected with 25.8 mCi of technetium 99M MDP IV. Delayed gamma camera images of the whole body from anterior posterior projections were obtained 3 hr after injection. FINDINGS: Increased uptake/activity in the inferior L2 vertebral body and superior L3 vertebral body and endplates. Activity at L2 is more to the right of midline. Remaining activity in the lumbar spine and thoracic spine is unremarkable. Abnormal activity or uptake in the cervical spine bilaterally, presumed to be within the facet joints possibly on the right at C5-6 and on the left at C3-4. Increased activity/uptake in the bilateral AC joints, right patella, bilateral midfoot, and left ankle. Increased focal activity in the inferior sternum. No abnormal soft tissue activity. No abnormal activity in the included long bones or flat bones. IMPRESSION: Activity at L2 and L3 is presumed to be spondylosis in the adjacent endplates and marrow edema as was seen on the prior MRI scan. Probable facet arthrosis in the mid to lower cervical spine. Probable degenerative arthrosis, including rheumatoid arthritis in the joints described above. Possible trauma or sternochondral arthrosis in the inferior sternum. Electronically signed by: Florentin Sims MD 12/12/2019 8:41 AM CDT
== END ==
LOC: NM 08:48
PROVIDERS: ATTEND Psychiatry & Neurology Neurology
DX: M79.0 Rheumatism, unspecified (principal); M81.0 Age-related osteoporosis without current pathological fracture

== ENCOUNTER → 2020-03-18 | Outpatient (CLI) | payer MEDICARE, MEDICAID | LOC: GMAF 16:42 | PROVIDERS: ATTEND Nurse Practitioner Family | DX: R30.0 Dysuria (principal) ==

== ENCOUNTER → 2020-03-27 | Outpatient (CLI) | payer MEDICARE, MEDICAID ==
--- NOTE | 2020-03-29 14:38 | MRI ---
EXAM DESCRIPTION: Lumbar Spine w/o Contrast : Magnetic Resonance Imaging. CLINICAL HISTORY: LUMBAR RADICULOPATHY, UNSP FX OF UNSP LUMBAR VERTEBRA COMPARISON: MRI scan lumbar spine October 09. TECHNIQUE: Multiplanar, multiple standard sequences, non contrast MRI, lumbar spine. FINDINGS: L5-S1: The disc is well visualized on axial T2 series 501, image 3. Disc desiccation and disc space loss and anterior. Anterior bulging. Tiny broad-based posterior bulge. Hypertrophic changes in the posterior ligaments and facet joints, more on the left. Trace retrolisthesis. Disc osteophyte bulging of the foramen on the left with AP canal narrowing 10 mm. Anterior and right-sided disc osteophyte bulge with moderate to severe right foraminal narrowing. No interval change from the prior study. L4-L5: Disc desiccation and disc space loss minimal to moderate more on the left. Disc osteophyte bulge into the foramen abutting the exiting left L4 nerve. Moderate hypertrophic changes in the canal elements. Moderate canal narrowing stable since the prior study. Mild narrowing of the right foramen. L3-L4: Disc desiccation and diffuse disc space loss with moderate to severe endplate reactive changes posterior and bilateral. Posterior disc osteophyte bulge and mild canal narrowing. AP canal diameter 10 mm. Bilateral moderate foraminal narrowing. Spondylosis is increased on the left since the prior study with increasing foraminal narrowing. L2-L3: Bilateral endplate reactive changes moderate in the midline and at the midline and advanced and severe to the right of midline. Disc osteophyte complex with [id number] narrowing of the right foramen. This has progressed since the prior study. Mild narrowing of the left foramen. Posterior disc bulge and spur osteophytes abutting the thecal sac. Hypertrophic changes in the canal elements. AP canal diameter 8.5 mm. L1-L2: Disc desiccation anterior and posterior bulge. Minimal endplate reactive changes in the midline into the left of midline. Posterior disc bulge. Hypertrophic changes in the canal elements. Mild canal narrowing. Mild right foraminal narrowing and left foramen is patent. Conus terminates just above the disc space. Stable since the prior study. T12-L1: Anterior disc bulge and spurs to the right of midline. Minimal disc desiccation at this space maintained. Minimal hypertrophy of the posterior ligaments. Canal and foramina are patent. L2-L4 levoscoliosis. Paravertebral soft tissues diffuse muscle atrophy. Ectasia of the abdominal aorta without aneurysm.. Distal cord normal signal and caliber. Otherwise Normal marrow signal in the remaining vertebral bodies and the posterior elements. Vertebral bodies are not compressed at any level. IMPRESSION: 1. Multiple levels of disc desiccation, disc space loss, endplate spondylosis, hypertrophic changes in the posterior flavum ligaments and facet joints, and disc bulging. 2. Multifactorial borderline mild central canal stenosis at L5-S1 and significant narrowing of the bilateral foramina is stable since the prior study. 3. Spondylosis has increased on the left at L3-L4 since the prior study with increasing foraminal narrowing and borderline mild central canal stenosis. 4. Mild to moderate central canal stenosis multifactorial at L2-L3. Canal and foraminal narrowing and spondylosis has progressed since the prior study. 5. Please refer to FINDINGS for discussion of results at other disc space levels. Electronically signed by: Florentin Sims MD 03/29/2020 2:37 PM [facility]
== END ==
LOC: MRI 10:00
PROVIDERS: ATTEND Neurological Surgery
DX: M51.16 Intervertebral disc disorders with radiculopathy, lumbar region (principal); M47.26 Other spondylosis with radiculopathy, lumbar region; M48.061 Spinal stenosis, lumbar region without neurogenic claudication; M24.28 Disorder of ligament, vertebrae